=== PATIENT | female | born 1945 | race Caucasian/White ===

== ENCOUNTER 2016-12-06 09:04 | Outpatient (CLI) | payer MEDICARE ==
[2016-12-06 12:33] LABS: ALT (SGPT) 10 U/L (0-55); AST (SGOT) 12 U/L (5-34); Albumin 4.4 g/dL (3.4-4.8); Alkaline Phosphatase 114 U/L (40-150); Anion Gap 14 mmol/L (10-20); BUN (Urea Nitrogen) 19 mg/dL (9.8-20.1); Bilirubin, Direct 0.4 mg/dL (0.1-0.3); Bilirubin, Total 1.3 mg/dL (0.2-1.2); Calc. Creatinine Clearance 0 mL/min (70-130); Calcium 9.5 mg/dL (7.8-10.44); Carbon Dioxide 27 mmol/L (23-31); Cardiac Risk 3.6 (Less than 4.5); Chloride 104 mmol/L (98-107); Cholesterol 218 mg/dL (< 200 Desired); Estimated GFR-MDRD 87; Glucose 94 mg/dL (80-115); HDL Cholesterol 61 mg/dL (>60 Neg Risk); LDL Cholesterol, Calculated 140 mg/dL; Potassium 4.1 mmol/L (3.5-5.1); Protein, Total 7.3 g/dL (5.8-8.1); Sodium 141 mmol/L (136-145); Triglycerides 83 mg/dL (Less than 150)
[2016-12-06 12:34] LABS: #Basophils 0.1 thou/uL (0.0-0.2); #Eosinphils 0.2 thou/uL (0.0-0.7); #Lymphocytes 1.3 thou/uL (1.20-3.40); #Monocytes 0.4 thou/uL (0.11-0.59); #Neutrophils 3.2 thou/uL (1.40-6.50); %Basophils 1.1 % (0.0-1.0); %Eosinophils 4.1 % (0.0-10.0); %Lymphocytes 25.9 % (21.0-51.0); Hemoglobin 14.1 g/dL (12.0-16.0); Mean Corpuscular HGB CONC 32.1 g/dL (32.0-36.0); Mean Corpuscular Hemoglobin 27.8 pg (27.0-31.0); Mean Corpuscular Volume 86.8 fl (81.0-99.0); Mean Platelet Volume 9.5 fL (7.4-10.4); Platelet Count 142 thou/uL (130-400); RBC Distribution Width 13.4 % (11.5-14.5); Red Blood Cell (RBC) Count 5.07 mill/uL (4.20-5.40); White Blood Cell (WBC) Count 5.2 thou/uL (4.8-10.8)
[2016-12-06 13:03] LABS: Hemoglobin A1c 4.8 % (4.0-6.0)
== END 2016-12-06 09:05 | disposition home or self-care (01) ==
LOC: NAVSJIPCSP 09:04
PROVIDERS: ATTEND Family Medicine
DX: I10 Essential (primary) hypertension (principal)
CPT/HCPCS: 36415; 80048; 80061; 80076; 83036; 84443; 85025

== ENCOUNTER 2017-10-16 07:15 | Emergency (ER) | payer MEDICARE ==
[2017-10-16] MEDS ORDERED: Ketorolac Tromethamine 60 MG/2 ML VIAL ONE (07:48)
--- NOTE | 2017-10-16 08:29 | RAD ---
SINUS SERIES THREE VIEWS: History: Jaw pain. Right sided. FINDINGS: The frontal sphenoid, ethmoid, and maxillary sinuses appear clear. No fluid or mucosal change. IMPRESSION: Negative sinuses. POS: [facility]
== END 2017-10-16 08:26 | disposition home or self-care (01) ==
LOC: NAV ERS 07:15
DX: K02.9 Dental caries, unspecified (principal); I10 Essential (primary) hypertension; E03.9 Hypothyroidism, unspecified; F32.9 Major depressive disorder, single episode, unspecified; Z85.3 Personal history of malignant neoplasm of breast; Z79.899 Other long term (current) drug therapy
CPT/HCPCS: 70220; 96372; J1885

== ENCOUNTER 2017-12-18 09:56 | Outpatient (CLI) | payer MEDICARE ==
--- NOTE | 2017-12-18 11:48 | RAD ---
TWO VIEWS CHEST: Indication: History of pleural effusion, follow up. Comparison: 10-14-14 FINDINGS: There is mild right pleural effusion inferior within the right hemithorax. There is a linear density of the right perihilar region extending laterally to the lateral chest wall which may be related to s ubsegmental atelectasis and/or a component of pleural based thickening along the minor fissure and po ssibly fissural fluid. Cardiac silhouette is stable. Left lung is clear. IMPRESSION: Right sided pleural fluid and wedge shaped density of the right perihilar region. Follow up to resolu tion is recommended. POS: [facility]
== END 2017-12-18 09:57 | disposition home or self-care (01) ==
LOC: NAV RAD 09:56
PROVIDERS: ATTEND Family Medicine
DX: R06.02 Shortness of breath (principal); Z87.09 Personal history of other diseases of the respiratory system; J98.4 Other disorders of lung; J94.8 Other specified pleural conditions
CPT/HCPCS: 71046

== ENCOUNTER 2018-01-16 09:09 | Outpatient (CLI) | payer MEDICARE ==
--- NOTE | 2018-01-16 09:41 | RAD ---
CHEST 2 VIEWS: HISTORY: Followup of right pleural effusion. COMPARISON: 12/18/17 study. FINDINGS: Heart size is upper limits of normal. Mediastinal structures appear unremarkable. Pleural and paren chymal changes in the right base are unchanged. IMPRESSION: Stable exam. POS: [facility]
== END 2018-01-16 09:10 | disposition home or self-care (01) ==
LOC: NAV RAD 09:09
PROVIDERS: ATTEND Family Medicine
DX: R93.8 Abnormal findings on diagnostic imaging of other specified body structures (principal); Z87.09 Personal history of other diseases of the respiratory system
CPT/HCPCS: 71046

== ENCOUNTER 2018-09-12 06:42 | Emergency (ER) | payer MEDICARE ==
[2018-09-12] MEDS ORDERED: Acetaminophen 500 MG TAB ONE (07:54)
[2018-09-12] MEDS ORDERED: cefTRIAXone\\ROCEPHIN 1 GM VIAL ONE (07:55)
[2018-09-12] MEDS ORDERED: Sodium Chloride 0.9% 100 ML ONE (07:55)
[2018-09-12 08:11] LABS: Bilirubin Negative (Negative); Blood, Urine Negative (Negative); Clarity Clear (Clear); Glucose, Urine (Dipstick) Negative (Negative); Leukocyte Negative (Negative); Nitrite Negative (Negative); Protein, Urine (Dipstick) Negative (Neg-Trace); Specific Gravity, Urine 1.015 (1.005-1.030); Urobilinogen 0.2 mg/dL (0.2-1.0)
[2018-09-12 08:12] LABS: ALT (SGPT) 12 U/L (8-55); AST (SGOT) 16 U/L (5-34); Alkaline Phosphatase 105 U/L (40-150); Anion Gap 13 mmol/L (10-20); BUN (Urea Nitrogen) 9 mg/dL (9.8-20.1); CK (CPK) 41 U/L (29-168); Calc. Creatinine Clearance 0 mL/min (70-130); Calcium 9.3 mg/dL (7.8-10.44); Carbon Dioxide 23 mmol/L (23-31); Chloride 106 mmol/L (98-107); Estimated GFR-MDRD Greater than 90; Globulin 2.9 g/dL (2.4-3.5); Glucose 121 mg/dL (83-110); Protein, Total 6.9 g/dL (6.0-8.3); Sodium 138 mmol/L (136-145)
[2018-09-12 08:23] LABS: #Lymphocytes 0.5 thou/uL (1.20-3.40); #Monocytes 0.5 thou/uL (0.11-0.59); #Neutrophils 1.3 thou/uL (1.40-6.50); %Basophils 1.4 % (0.0-1.0); %Eosinophils 0.5 % (0.0-10.0); %Lymphocytes 20.9 % (21.0-51.0); %Neutrophils 56.2 % (42.0-75.0); Hemoglobin 12.3 g/dL (12.0-16.0); Mean Corpuscular Hemoglobin 25.4 pg (27.0-31.0); Mean Corpuscular Volume 79.4 fL (78.0-98.0); Mean Platelet Volume 9.8 fL (7.4-10.4); Platelet Count 147 thou/uL (130-400); Red Blood Cell (RBC) Count 4.83 mill/uL (4.20-5.40)
[2018-09-12 08:24] LABS: White Blood Cell (WBC) Count 2.2 thou/uL (4.8-10.8)
--- NOTE | 2018-09-12 08:26 | RAD ---
CHEST TWO VIEWS: 09/12/2018 PROVIDED CLINICAL HISTORY: Fever. COMPARISON: 01/16/2018 FINDINGS: Cardiac and mediastinal silhouette is unchanged in appearance. Blunting of the left costophrenic ang le. Persistent right basilar pleural and/or parenchymal opacity. No evidence for pneumothorax. IMPRESSION: Bilateral pleural effusions, right greater than left, with adjacent right basilar subsegmental atelec tasis or infiltrate. POS: [facility]
[2018-09-12] MEDS ORDERED: Levofloxacin 500 mg/D5W 100 ml Premix Bag ONE (08:48)
--- NOTE | 2018-09-12 08:50 | RAD ---
SOFT TISSUE NECK RADIOGRAPHS TWO VIEWS: 09/12/2018 PROVIDED CLINICAL HISTORY: Headache and fever. FINDINGS: There is no prevertebral soft tissue swelling apparent. The epiglottis and aryepiglottic folds appea r normal. Hypopharyngeal airway and trachea appear radiographically normal. The visualized lung api velma appear clear. Degenerative changes are seen involving the cervical spine. IMPRESSION: No evidence for an acute process. POS: [facility]
== END 2018-09-12 10:00 | disposition home or self-care (01) ==
LOC: NAV ERS 06:42
DX: J90 Pleural effusion, not elsewhere classified (principal); R50.9 Fever, unspecified; E11.9 Type 2 diabetes mellitus without complications; E03.9 Hypothyroidism, unspecified; I10 Essential (primary) hypertension; Z87.891 Personal history of nicotine dependence; Z79.899 Other long term (current) drug therapy
CPT/HCPCS: 70360; 71046; 80053; 81003; 82550; 83605; 84443; 84484; 85025; 87040; 87081; 87086; 87430; 87804; 93005; 96365; 96367; J0696; J1956; J7050